=== PATIENT | male | born 1950 | race Caucasian/White ===

== ENCOUNTER 2018-04-11 13:12 | Observation (INO) | payer OTHER ==
--- OUTSIDE RECORDS SUMMARY | 2018-04-11 13:14 | XMS REPORT | Clinical Summary ---
:1950 Author Organization [facility] Address [address] [place] [address] Care Team Providers Name Role Phone James Antunez MD Primary Care Provider Allergies Not on File Medications Not on file Active Problems Not on file Encounters Date Type Specialty Care Team Description 02/07/2018 Hospital Encounter Radiology Priyanka Estes MD Pain 02/07/2018 Transcribe Orders Access Priyanka Estes MD Pain (Primary Dx) after 04/10/2017 Social History Tobacco Use Types Packs/Day Years Used Date Never Assessed Sex Assigned at Date Recorded Not on file Job Start Date Occupation Industry Not on file Not on file Not on file Travel History Travel Start Travel End No recent travel history available. Last Filed Vital Signs Not on file Plan of Treatment Health Maintenance Due Date Last Done Comments COLON CANCER SCREENING 08/10/1999 SHINGLES VACCINES (1 of 2) 08/10/1999 PNEUMOCOCCAL POLYSACCHARIDE VACCINE AGE 65 AND OVER 2014 PNEUMOCOCCAL-13 2014 INFLUENZA VACCINE 10/13/2017 Procedures Procedure Name Priority Date/Time Associated Diagnosis Comments XR HAND 3+ VW RIGHT Routine 02/07/2018 4:56 PM Pain Results for this TWIST MAKER procedure are in the results section. after 04/10/2017 Results XR Hand 3+ Vw Right (02/07/2018 4:56 PM TWIST MAKER) Narrative Performed At EXAMINATION:XR HAND 3VW RIGHT [facility] CLINICAL HISTORY:R52 Painunspecified, pain COMPARISON:None. IMPRESSION: 1.3 view evaluation of the right hand demonstrates no evidence for an acute fracture or dislocation. 2.There is mild joint space narrowing of the distal interphalangeal joint spaces and mild narrowing and sclerosis along the radial carpal junction. The intercarpal joint spaces are preserved. The ulnar styloid process is intact. No evidence for articular erosion. [id number] Procedure Note Hm Interface, Radiology Results Incoming - 02/07/2018 5:26 PM TWIST MAKER EXAMINATION: XR HAND 3 VW RIGHT CLINICAL HISTORY: R52 Pain unspecified, pain COMPARISON: None. IMPRESSION: 1. 3 view evaluation of the right hand demonstrates no evidence for an acute fracture or dislocation. 2. There is mild joint space narrowing of the distal interphalangeal joint spaces and mild narrowing and sclerosis along the radial carpal junction. The intercarpal joint spaces are preserved. The ulnar styloid process is intact. No evidence for articular erosion. [id number] Performing Organization Address City/State/Zipcode Phone Number [facility] [address] [place] [address] after 04/10/2017 Insurance Payer Benefit Plan / Group Subscriber ID Type Phone Address AETNA MEDICARE AETNA MEDICARE HMO/PPO [facility] xxxxxxxx HMO Advance Directives Patient has advance care planning documents on file. For more information, please contact:Shaheed Dugan[address] [place] [address]
[2018-04-11 14:40] LABS: Absolute Monocytes 0.7 K/uL (0.1-1.3); Absolute Neutrophil 3.5 K/uL (1.8-8.0); Basophils % 0.7 % (0-1.3); Eosinophils % 3.6 % (0-4.4); Hematocrit 40.8 % (39.6-49.0); Lymphocytes % 18.4 % (15.3-44.8); MPV 9.7 fL (7.6-11.3); Monocytes % 12.2 % (3.3-12.3); RBC Red Blood Cell Count 4.59 M/uL (4.33-5.43)
[2018-04-11 14:57] LABS: Protime INR 1.12
[2018-04-11 14:59] LABS: ALT/SGPT 18 U/L (12-78); AST/SGOT 19 U/L (15-37); Albumin 3.7 g/dL (3.4-5.0); Alkaline Phosphatase 123 U/L (45-117); BUN Blood Urea Nitrogen 11 mg/dL (7-18); Bicarbonate 29 mmol/L (21-32); Bilirubin Direct 0.1 mg/dL (0-0.2); Bilirubin Total 0.4 mg/dL (0.2-1.0); Glucose Level 102 mg/dL (74-106); Magnesium 2.3 mg/dL (1.8-2.4); NT PRO-BNP 124 pg/mL (<125); Potassium 4.2 mmol/L (3.5-5.1); Protein, Total 7.4 g/dL (6.4-8.2); Sodium Level 140 mmol/L (136-145); Troponin (Emerg Dept Use Only) < 0.02 ng/mL (0.0-0.045)
--- NOTE | 2018-04-11 15:27 | RAD REPORT ---
EXAM DESCRIPTION: RAD - Chest Single View - 04/11/2018 2:54 pm CLINICAL HISTORY: Fall, syncope, chest pain COMPARISON: April 2017 TECHNIQUE: AP portable chest image was obtained 1447 hours . FINDINGS: No pulmonary contusion, mass or focal infiltrate. Patient has significant baseline interst itial lung disease similar or less prominent than seen back in April 2017. Mediastinal silhouette matches the prior study. Heart and vasculature are normal. No measurable pleural effusion and no pneu mothorax. No acute bony abnormality seen. No acute aortic findings suspected. IMPRESSION: Prominent interstitial lung disease is present as a baseline. No pulmonary contusion, pn eumothorax or other acute traumatic chest injury seen.
--- NOTE | 2018-04-11 15:28 | RAD REPORT ---
EXAM DESCRIPTION: RAD - Wrist Left 3 View - 04/11/2018 2:54 pm CLINICAL HISTORY: Syncope, fall, left wrist pain COMPARISON: Left wrist February 2014 FINDINGS: Transverse fracture of the distal radius is present seen as buckling of the cortex at the metaphyseal level. There is faint curvilinear lucency in this region as well. No distraction or angul ation deformity. No carpal bone injury seen. Multiple metallic fragments are seen in the soft tissues from a remote injury to the hand. There is no dislocation or periosteal reaction noted. No foreign b jesus or other soft tissue abnormality. IMPRESSION: Nondisplaced, nonangulated fracture of the distal left radius.
--- NOTE | 2018-04-11 15:46 | RAD REPORT ---
EXAM DESCRIPTION: CT - CTHCSPWOC - 04/11/2018 3:21 pm CLINICAL HISTORY: Syncope, fall, head and neck injury COMPARISON: No comparison available TECHNIQUE: Axial 5 mm thick images of the head were obtained. Axial 2 mm thick images of the cervic al spine were obtained with sagittal and coronal reconstruction images generated and reviewed. All CT scans are performed using dose optimization technique as appropriate and may include automated exposure control or mA/KV adjustment according to patient size. FINDINGS: No epidural or subdural hematoma identified. Acute subarachnoid hemorrhage is not confirmed. Along a sulcus in the midline upper right anterior parietal lobe there is a curvilinear hyperdensity followin g the course of a gyrus. Attenuation values ranged from 95-117 Hounsfield units which is higher than seen with acute subarachnoid hemorrhage. Punctate hyperdensities in the medial anterior left cerebell um are seen also believed to be physiologic mineralization rather than subarachnoid hemorrhage. Patie nt has mild atrophy and chronic ischemic change. The right frontal hyperdensity is probably mineraliz ation from an old traumatic event. No mass effect, edema or shift of midline structures. No acute cortical infarction. No cortical edema or sulcal effacement. No extra-axial fluid collections. Mastoid air cells and paranasal sinuses are clear. No globe or orbit abnormality seen. Cervical bodies are normal in height. Slight anterior subluxation of C4 on C5 noted secondary to adva nced facet joint degenerative change. Significant C5-6 and C6-7 disc space narrowing and endplate spu rring noted. Multilevel facet hypertrophy present. Significant right foraminal stenosis at C3-4 and C 4-5. Mild bilateral foraminal stenosis at C5-6 and on the right at C6-7. No fracture or acute bony ab normality. Central canal detail is inherently limited. No paraspinal mass or hematoma. IMPRESSION: No acute intracranial hemorrhage, mass or edema. There is curvilinear hyperdensity along a sulcus in the right anteromedial parietal lobe that has an attenuation value of 95-117 Hounsfield units which is much higher than seen in subarachnoid hemorrhag e (40-70 Hounsfield units). This is likely mineralization along the cortex from prior traumatic or is chemic injury. Prominent cervical spine degenerative change as detailed. No acute findings seen.
--- NOTE | 2018-04-11 15:49 | ER ---
Nurse's Notes [facility] Name: Alex Garcia Age: 67 yrs Sex: Male : 1950 Arrival Date: 04/11/2018 Time: 13:15 Bed 16 Private MD: James Antunez Diagnosis: Syncope and collapse;Nondisplaced comminuted fracture of shaft of radius, right arm Presentation: 04/11 13:23 Presenting complaint: Patient states: syncopal episode at home, pt stated he felt fine sv before and then he remembers waking up on the floor. Left knee abrasion, lower lip laceration, nasal laceration where his glasses sit. Care prior to arrival: None. 13:23 Acuity: PANDA 2 sv 13:23 Method Of Arrival: Wheelchair sv 13:24 Transition of care: patient was not received from another setting of care. Onset of sv symptoms was April 11, 2018. 13:30 Risk Assessment: Do you want to hurt yourself or someone else? Patient reports no jl7 desire to harm self or others. Initial Sepsis Screen: Does the patient meet any 2 criteria? No. Patient's initial sepsis screen is negative. Does the patient have a suspected source of infection? No. Patient's initial sepsis screen is negative. Historical: - Allergies: 13:25 Methotrexate; sv - PMHx: 13:25 Anxiety; Depression; GERD; Hypothyroidism; left arm injury with injury to arter.; sv Rheumatoid Arthritis; - PSHx: 13:25 Carpal Tunnel Repair; left finger surg; sv - Immunization history:: Adult Immunizations not up to date. - Social history:: Patient/guardian denies using alcohol, street drugs, The patient lives with family, Smoking status: unknown. - Family history:: not pertinent. - Ebola Screening: : No symptoms or risks identified at this time. Screenin:30 Abuse screen: Denies threats or abuse. Denies injuries from another. Nutritional jl7 screening: No deficits noted. Tuberculosis screening: No symptoms or risk factors identified. Fall Risk Fall in past 12 months (25 points). IV access (20 points). Total Talavera Fall Scale indicates High Risk Score (45 or more points). Fall prevention measures have been instituted. Side Rails Up X 2 Placed Close to Nursing Station Frequent Obs/Assessments Occuring Family Present and informed to notify staff if the need to leave the bedside As available patient and family educated on Fall Prevention Program and Strategies. Assessment: 13:30 General: Appears in no apparent distress. uncomfortable, Behavior is calm, cooperative, jl7 appropriate for age. Pain: Denies pain. Complains of pain in left arm, pt states "It don't really hurt.". Neuro: Level of Consciousness is awake, alert, obeys commands, Oriented to person, place, time, situation. Cardiovascular: Patient's skin is warm and dry. Respiratory: Airway is patent Respiratory effort is even, unlabored, Respiratory pattern is regular, symmetrical. GI: No signs and/or symptoms were reported involving the gastrointestinal system. : No signs and/or symptoms were reported regarding the genitourinary system. EENT: No signs and/or symptoms were reported regarding the EENT system. Derm: Skin is pink, warm \\T\\ dry. Musculoskeletal: Range of motion: intact in all extremities. Injury Description: small abrasion noted to bridge pg nose and left cheek. Laceration noted to inside bottom lip. 14:30 Reassessment: Patient appears in no apparent distress at this time. Patient and/or jl7 family updated on plan of care and expected duration. Pain level reassessed. Patient is alert, oriented x 3, equal unlabored respirations, skin warm/dry/pink. 15:30 Reassessment: Patient appears in no apparent distress at this time. No changes from jl7 previously documented assessment. Patient and/or family updated on plan of care and expected duration. Pain level reassessed. Patient is alert, oriented x 3, equal unlabored respirations, skin warm/dry/pink. 16:30 Reassessment: Patient and/or family updated on plan of care and expected duration. Pain jl7 level reassessed. Patient is alert, oriented x 3, equal unlabored respirations, skin warm/dry/pink. Vital Signs: 13:25 BP 151 / 84; Pulse 69; Resp 20; Temp 98.8; Weight 99.79 kg; Height 6 ft. 1 in. (185.42 sv cm); Pain 03/24; 14:30 BP 143 / 77; Pulse 68; Resp 20; Temp 97.9(TE); Pulse Ox 97% ; mh5 15:30 BP 141 / 89; Pulse 67; Resp 16 S; Pulse Ox 98% on R/A; jl7 17:11 BP 137 / 91; Pulse 66; Resp 16 S; Pulse Ox 97% on R/A; jl7 13:25 Body Mass Index 29.03 (99.79 kg, 185.42 cm) sv ED Course: 13:15 Patient arrived in ED. mr 13:16 James Antunez MD is Private Physician. mr 13:24 Triage completed. sv 13:26 Arm band placed on. sv 13:32 Zurdo Fajardo, JOSE is Primary Nurse. jl7 13:39 Heidi Garcia MD is Attending Physician. ma2 14:19 Patient has correct armband on for positive identification. Bed in low position. Call [facility] light in reach. Side rails up X2. Adult w/ patient. Pulse ox on. NIBP on. 14:19 Initial lab(s) drawn, by pa, sent to lab. Inserted saline lock: 20 gauge in right [facility] antecubital area, using aseptic technique. Blood collected. 14:20 PT-INR Sent. 5 14:20 NT PRO-BNP Sent. 5 14:20 Magnesium Sent. 5 14:20 LFT's Sent. 5 14:20 CBC with Diff Sent. 5 14:20 Basic Metabolic Panel Sent. 5 14:27 Warm blanket given. patient monitor on. 5 14:49 Radiology exam delayed due to lab results not completed at this time. (BUN/Creatinine). 2 14:51 X-ray completed. Portable x-ray completed in exam room. Patient tolerated procedure 1 well. 14:52 XRAY Chest (1 view) In Process Unspecified. EDMS 14:52 Wrist Left (3 View) XRAY In Process Unspecified. EDMS 15:23 CT Abd/Pelvis - W/Contrast In Process Unspecified. EDMS 15:23 CT Head C Spine In Process Unspecified. EDMS 15:23 CT Facial Bones W/O Con In Process Unspecified. EDMS 15:47 James Antunez MD is Hospitalizing Provider. ma2 17:18 No provider procedures requiring assistance completed. Patient admitted, IV remains in 7 place. intact, No redness/swelling at site. Administered Medications: No medications were administered Outcome: 15:48 Decision to Hospitalize by Provider. ma2 18:01 Admitted to Tele accompanied by tech, via wheelchair, room 204, with chart, Report jl7 called to JOSE Carbajal 18:01 Condition: stable 18:01 Discharge instructions given to patient, family, Instructed on the need for admit, Demonstrated understanding of instructions. 18:02 Patient left the ED. jl7 Signatures: Dispatcher [employer] Nadine Law RN RN sv Rivera, Mary mr RamirezAmber 1 Cristal Sheppard Jahala, RN RN jl7 Sarah Kendall Heidi Garcia MD MD vt2
--- NOTE | 2018-04-11 15:49 | RAD REPORT ---
EXAM DESCRIPTION: CT - Abdomen Pelvis W Contrast - 04/11/2018 3:21 pm CLINICAL HISTORY: Abdominal pain COMPARISON: None. TECHNIQUE: Biphasic, helical CT imaging of the abdomen and pelvis was performed following 100 ml non -ionic IV contrast. No oral contrast administered. All CT scans are performed using dose optimization technique as appropriate and may include automated exposure control or mA/KV adjustment according to patient size. FINDINGS: Advanced COPD changes are present in each lung base. No acute finding. No pericardial thic kening or effusion. The liver, spleen, and pancreas show no suspicious findings. Gallbladder and biliary tree are also wi thout suspicious finding. Gallstones can be occult on CT imaging. Symmetric renal function is seen with no hydronephrosis or suspicious renal mass. No pyelonephritis o r acute parenchymal process. No bladder abnormalities. No adrenal abnormalities. No gastric dilatation or wall thickening. Small bowel loops are not abnormally dilated though there a re several prominent fluid-filled loops of distal jejunum. Moderate stool volume in nondilated colon. No acute colon finding. No free air, free fluid or inflammatory stranding. No mass or bulky lympha denopathy. Fat extends into the origin of the left inguinal canal. Disc and bony degenerative changes are present. No acute vascular finding. IMPRESSION: Proximal small bowel enteritis pattern with no obstruction, free air or surgically emerg ent finding.
--- NOTE | 2018-04-11 15:49 | EDPHYS ---
Physician Documentation [facility] Name: Alex Garcia Age: 67 yrs Sex: Male : 1950 Arrival Date: 04/11/2018 Time: 13:15 Bed 16 Private MD: James Antunez ED Physician Heidi Garcia HPI: 04/11 14:06 This 67 yrs old Male presents to ER via Wheelchair with complaints of Passed ma2 Out Prior To Arrival, Fall Injury. 14:06 The patient has experienced syncope. Onset: The symptoms/episode began/occurred ma2 suddenly, 1 hour(s) ago. Duration: This was a single episode. Associated injury: Head/face:. Associated signs and symptoms: Pertinent positives: weakness, Pertinent negatives: blurred vision, chest pain, confusion, diarrhea. Current symptoms: Currently, the patient is not experiencing any symptoms. The patient has not experienced similar symptoms in the past. Historical: - Allergies: 13:25 Methotrexate; sv - PMHx: 13:25 Anxiety; Depression; GERD; Hypothyroidism; left arm injury with injury to arter.; sv Rheumatoid Arthritis; - PSHx: 13:25 Carpal Tunnel Repair; left finger surg; sv - Immunization history:: Adult Immunizations not up to date. - Social history:: Patient/guardian denies using alcohol, street drugs, The patient lives with family, Smoking status: unknown. - Family history:: not pertinent. - Ebola Screening: : No symptoms or risks identified at this time. ROS: 14:06 Constitutional: Negative for fever, chills, and weight loss, Cardiovascular: Negative ma2 for chest pain, palpitations, and edema, Respiratory: Negative for shortness of breath, cough, wheezing, and pleuritic chest pain, Abdomen/GI: Negative for abdominal pain, nausea, diarrhea, and constipation, Allergy/Immunology: Negative for hives, rash, and allergies, Endocrine: Negative for neck swelling, polydipsia, polyuria, polyphagia, and marked weight changes. 14:06 MS/extremity: Positive for abrasion, pain, Negative for contusion, decreased range of motion. 14:06 All other systems are negative. Exam: 14:06 Abdomen/GI: Inspection: abdomen appears normal. ma2 14:06 Constitutional: This is a well developed, well nourished patient who is awake, alert, and in no acute distress. Chest/axilla: Normal chest wall appearance and motion. Nontender with no deformity. No lesions are appreciated. Cardiovascular: Regular rate and rhythm with a normal S1 and S2. No gallops, murmurs, or rubs. Normal PMI, no JVD. No pulse deficits. Respiratory: Lungs have equal breath sounds bilaterally, clear to auscultation and percussion. No rales, rhonchi or wheezes noted. No increased work of breathing, no retractions or nasal flaring. 14:06 Head/face: lower lip inner laceration that is not throgh and through, teeth intact, nasal abrasion, . 14:06 Musculoskeletal/extremity: ROM: intact in all extremities, limited passive range of motion, at left wrsit , Circulation is intact in all extremities. Sensation intact. Vital Signs: 13:25 BP 151 / 84; Pulse 69; Resp 20; Temp 98.8; Weight 99.79 kg; Height 6 ft. 1 in. (185.42 sv cm); Pain /10; 14:30 BP 143 / 77; Pulse 68; Resp 20; Temp 97.9(TE); Pulse Ox 97% ; mh5 15:30 BP 141 / 89; Pulse 67; Resp 16 S; Pulse Ox 98% on R/A; jl7 17:11 BP 137 / 91; Pulse 66; Resp 16 S; Pulse Ox 97% on R/A; jl7 13:25 Body Mass Index 29.03 (99.79 kg, 185.42 cm) sv MDM: 13:39 Patient medically screened. ma2 14:06 Differential Diagnosis: cardiac arrhythmia, drug effect, idiopathic syncope, sepsis. ma2 15:46 Data reviewed: vital signs, nurses notes, lab test result(s), radiologic studies. ma2 Response to treatment: the patient's symptoms have mildly improved after treatment. 15:47 ED course: discussed with dr. west . ak2 04/11 13:39 Order name: Basic Metabolic Panel; Complete Time: 15:13 2 04/11 13:39 Order name: CBC with Diff; Complete Time: 14:50 ak2 04/11 13:39 Order name: LFT's; Complete Time: 15:13 ak04/11 13:39 Order name: Magnesium; Complete Time: 15:13 ak2 04/11 13:39 Order name: NT PRO-BNP; Complete Time: 15:13 ma2 04/11 13:39 Order name: PT-INR; Complete Time: 15:13 ma2 04/11 13:39 Order name: Troponin (emerg Dept Use Only); Complete Time: 15:13 ma2 04/11 13:39 Order name: XRAY Chest (1 view); Complete Time: 15:43 ma2 04/11 13:58 Order name: CT Abd/Pelvis - W/Contrast; Complete Time: 17:17 ma2 04/11 15:49 Order name: Urine Dipstick--Ancillary (enter results); Complete Time: 17:17 bd 04/11 15:52 Order name: Basic Metabolic Panel EDMS 04/11 15:52 Order name: Basic Metabolic Panel EDMS 04/11 15:52 Order name: CBC with Automated Diff EDMS 04/11 15:52 Order name: CBC with Automated Diff EDMS 04/11 13:26 Order name: EKG; Complete Time: 13:27 sv 04/11 13:26 Order name: EKG - Nurse/Tech; Complete Time: 14:15 sv 04/11 13:39 Order name: Cardiac monitoring; Complete Time: 14:21 ma2 04/11 13:39 Order name: IV Saline Lock; Complete Time: 14:20 ma2 04/11 13:39 Order name: Labs collected and sent; Complete Time: 14:15 2 04/11 13:39 Order name: O2 Per Protocol; Complete Time: 14:15 ma2 04/11 13:39 Order name: O2 Sat Monitoring; Complete Time: 14:15 ak2 04/11 13:58 Order name: CT Head C Spine; Complete Time: 17:17 ma2 04/11 13:58 Order name: Wrist Left (3 View) XRAY; Complete Time: 15:43 ma2 04/11 15:14 Order name: CT Facial Bones W/O Con; Complete Time: 17:17 ma2 04/11 15:47 Order name: Sugar Tong Forearm Splint: right wrist; Complete Time: 16:15 ma2 04/11 15:52 Order name: Regular EDMS 04/11 15:52 Order name: EKG Electrocardiogram EDMS 04/11 15:52 Order name: EKG Electrocardiogram EDMS Administered Medications: No medications were administered Disposition: 04/11/18 15:48 Hospitalization ordered by James Antunez for Observation. Preliminary diagnosis are Syncope and collapse, Nondisplaced comminuted fracture of shaft of radius, right arm. - Bed requested for Telemetry/MedSurg (observation). - Status is Observation. jl7 - Condition is Stable. - Problem is new. - Symptoms are unchanged. UTI on Admission? No Signatures: Dispatcher [employer] EDMS Ivette Morales Stephanie, RN RN Zurdo Fajardo RN RN jl7 Heidi Garcia MD MD ma2 Corrections: (The following items were deleted from the chart) 17:02 15:48 Hospitalization Ordered by James Antunez MD for Observation. Preliminary bd diagnosis is Syncope and collapse; Nondisplaced comminuted fracture of shaft of radius, right arm. Bed requested for Telemetry/MedSurg (observation). Status is Observation. Condition is Stable. Problem is new. Symptoms are unchanged. UTI on Admission? No. ma2 18:02 17:02 04/11/2018 15:48 Hospitalization Ordered by James Antunez MD for Observation. jl7 Preliminary diagnosis is Syncope and collapse; Nondisplaced comminuted fracture of shaft of radius, right arm. Bed requested for Telemetry/MedSurg (observation). Status is Observation. Condition is Stable. Problem is new. Symptoms are unchanged. UTI on Admission? No. bd
[2018-04-11] MEDS ORDERED: ONDANSETRON 4 MG/2 ML VIAL IV PRN (15:50)
[2018-04-11] MEDS ORDERED: ACETAMINOPHEN 500 MG TAB PO PRN (15:50)
--- NOTE | 2018-04-11 16:00 | RAD REPORT ---
EXAM DESCRIPTION: CT - Facial Bones W/ Mpr - 04/11/2018 3:21 pm CLINICAL HISTORY: Syncope, fall, facial injury COMPARISON: None. TECHNIQUE: Axial 2 millimeter thick images of the facial bones were obtained with sagittal and coron al reconstruction imaging. All CT scans are performed using dose optimization technique as appropriate and may include automated exposure control or mA/KV adjustment according to patient size. FINDINGS: No mandible fracture. Condyles are normally positioned. There is mild degenerative change at each TM joint. Mastoid air cells are clear. No skullbase fracture identified. Cervical spine degen erative changes are separately detailed. Contusion or edema changes overlie the left-side frontal sof t tissues. Underlying sinus steel are intact. Trace mucosal thickening in the frontal and ethmoid sin uses. No air-fluid levels in the paranasal sinuses. No facial bone fracture confirmed. Patient has si gnificant left deviation of the nasal septum. No globe or orbital content acute finding. No foreign b jesus identified. IMPRESSION: Left frontal scalp contusion with underlying sinus steel intact. No acute facial bone finding seen.
[2018-04-11 16:31] LABS: Urine Blood NEGATIVE (NEG); Urine Glucose NEGATIVE (NEG); Urine Protein NEGATIVE (NEG); Urine Specific Gravity 1.015 (1.005-1.030)
[2018-04-11 18:24] VITALS: BMI 30.7
--- NOTE | 2018-04-11 20:49 | EKG ---
Test Date: 2018-04-11 Test Time: 13:27:58 Multi Disciplined Language Analyst: [place] MEASUREMENT RESULTS: Intervals: Rate: 65 DC: 196 QRSD: 132 QT: 430 QTc: 447 Roper: P: 38 DC: 196 QRS: -54 T: 1 INTERPRETIVE STATEMENTS: Normal sinus rhythm Left axis deviation Nonspecific intraventricular block Abnormal ECG Compared to ECG 05/08/2017 02:21:31 Left ventricular hypertrophy no longer present Electronically Signed On 04-11-18 20:47:49 FOREIGN LANGUAGES PROFESSOR by Mayank Funes
[2018-04-12 00:04] LABS: Urine Appearance CLEAR; Urine Bilirubin NEGATIVE (NEG); Urine Blood NEGATIVE (NEG); Urine Color YELLOW; Urine Glucose NEGATIVE (NEG); Urine Protein NEGATIVE (NEG); Urine Urobilinogen 0.2 mg/dL (0.2-1.0)
[2018-04-12 00:51] LABS: Urine Microscopic Reflex NO UMIC
[2018-04-12 06:19] LABS: Absolute Lymphocytes (CBC) 1.5 K/uL (0.7-4.9); Absolute Monocytes 1.3 K/uL (0.1-1.3); Absolute Neutrophil 5.3 K/uL (1.8-8.0); Basophils % 0.2 % (0-1.3); Eosinophils % 2.2 % (0-4.4); Hematocrit 37.7 % (39.6-49.0); Lymphocytes % 17.6 % (15.3-44.8); MPV 10.1 fL (7.6-11.3); Monocytes % 15.6 % (3.3-12.3)
[2018-04-12 06:41] LABS: Potassium 3.8 mmol/L (3.5-5.1)
[2018-04-12 08:40] LABS: Urine White Blood Cell Casts OK
[2018-04-12 08:41] LABS: Blood Morphology Comment NOT SEEN (NOT SEEN); Platelet Estimate ADEQ
[2018-04-12 08:54] VITALS: O2SAT 97
[2018-04-12] MEDS ORDERED: ASPIRIN EC 81 MG TAB PO SCH (09:00)
[2018-04-12] MEDS ORDERED: PNEUMOCOCCAL VACCINE 0.5 ML IMVAC ONE (09:00)
--- NOTE | 2018-04-12 13:49 | PN ---
Date of Progress Note: 04/11/2018 The patient is seen tonight and seems back to baseline as far as any neurological or functional probl ems are concerned, does complain obviously of discomfort in his arm which has a nondisplaced fracture of the radius and some mild soreness and nasal discomfort where the glasses hit. The patient states he remembers everything that happened. He does not think he was unconscious for any significant par t of the time and he feels basically back to baseline. We will continue to monitor overnight and if no other changes in his vital signs and mental status could probably be discharged in the a.m. HR/MODL Voice ID: [id number] Report ID: [id number]
--- NOTE | 2018-04-12 14:18 | RAD REPORT ---
EXAM DESCRIPTION: US - CP - 04/12/2018 1:49 pm CLINICAL HISTORY: Syncope COMPARISON: None. TECHNIQUE: Real-time sonographic evaluation of both carotid systems was performed. Holland scale and Do ppler interrogation were performed with waveform tracing bilaterally. FINDINGS: Normal high resistance waveforms are noted in both external carotid arteries. The common c arotid arteries and internal carotid arteries show normal low resistance waveforms. Scattered plaquing changes are present in the bilateral common carotid and internal carotid arteries. On visual inspection there is no significant narrowing of the lumen. Right ICA is tortuous. Peak sys tolic and end diastolic velocity values and the ICA/CCA ratios are in the non-hemodynamically signifi cant range. Antegrade flow seen in both vertebral arteries. Velocity values and ratios were recorded and are retained in the patient's imaging records. IMPRESSION: Mild plaquing changes with no significant luminal narrowing. No evidence of a hemodynamically significant stenosis.
[2018-04-12 17:26] VITALS: BP 158/79; TEMP 98.8
[2018-04-12] MEDS ORDERED: RANITIDINE 150 MG TABLET PO SCH (21:00)
[2018-04-12] MEDS ORDERED: SULFASALAZINE 500 MG E.C. TAB PO SCH (21:00)
[2018-04-13] MEDS ORDERED: LEVOTHYROXINE SOD 0.112 MG TAB PO SCH (06:30)
[2018-04-13] MEDS ORDERED: LEVOTHYROXINE SOD 0.025 MG TAB PO SCH (06:30)
[2018-04-13] MEDS ORDERED: FLUOXETINE 20 MG CAP PO SCH (09:00)
[2018-04-13] MEDS ORDERED: HOME MED 1 EA UNK (Levothyroxine Sodium [Levothyroxine Sodium] 137 MCG) PO SCH (09:00)
[2018-04-13] MEDS ORDERED: MULTIVIT W/ MINERAL TAB PO SCH (09:00)
== END 2018-04-12 21:40 | disposition home or self-care (01) ==
LOC: ER 13:12 → ERHOLD 15:51 → 2ND 17:56
PROVIDERS: ADMIT Family Medicine; ATTEND Family Medicine
DX: R55 Syncope and collapse (principal); S52.351A Displaced comminuted fracture of shaft of radius, right arm, initial encounter for closed fracture; W18.30XA Fall on same level, unspecified, initial encounter; Y92.009 Unspecified place in unspecified non-institutional (private) residence as the place of occurrence of the external cause; F41.8 Other specified anxiety disorders; K21.9 Gastro-esophageal reflux disease without esophagitis; E03.9 Hypothyroidism, unspecified
CPT/HCPCS: 36415 ×2; 70450; 70486; 71045; 72125; 73110; 74177; 76377; 80048 ×2; 80076; 81003 ×2; 83735; 83880; 84484; 85025 ×2; 85610; 93005; 93880; 99285; G0378 ×2; Q9967

== ENCOUNTER 2020-01-30 15:32 | Observation (INO) | payer OTHER ==
--- OUTSIDE RECORDS SUMMARY | 2020-01-30 15:35 | XMS REPORT | Clinical Summary ---
:1950 Author Organization [facility] Address [address] [place] [address] Care Team Providers Name Role Phone MD Tulio Primary Care Provider Allergies Not on File Medications Not on file Active Problems Not on file Social History Tobacco Use Types Packs/Day Years Used Date Never Assessed Sex Assigned at Date Recorded Not on file Last Filed Vital Signs Not on file Plan of Treatment Health Maintenance Due Date Last Done Comments COLONOSCOPY SCREENING 08/10/1999 SHINGLES VACCINES (#1) 08/10/1999 65+ PNEUMOCOCCAL VACCINE (1 of 1 - PPSV23) 2014 INFLUENZA VACCINE 10/14/2019 Results Not on fileafter 01/29/2019 Advance Directives For more information, please contact: [phone] Type Date Recorded Patient Clinical Support Tech Explanati on Advance Directives, Living 02/07/2018 4:34 PM Will and Medical Power of Cellular Equipment Installer
[2020-01-30 16:50] LABS: Absolute Lymphocytes (CBC) 1.3 K/uL (0.7-4.9); Basophils % 0.5 % (0-1.3); Hematocrit 42.4 % (39.6-49.0); MPV 10.3 fL (7.6-11.3); Protime INR 1.08; RBC Red Blood Cell Count 4.93 M/uL (4.33-5.43)
--- NOTE | 2020-01-30 16:57 | RAD REPORT ---
EXAM DESCRIPTION: RAD - Chest Single View - 01/30/2020 4:29 pm CLINICAL HISTORY: CHEST PAIN Chest pain. COMPARISON: Chest Single View dated 04/11/2018; Chest Single View dated 05/08/2017; Chest Pa And Lat ( 2 Views) dated 01/12/2017 FINDINGS: Portable technique limits examination quality. The lungs are grossly clear. The heart is normal in size. Mildly tortuous thoracic aorta. No displace d fractures. IMPRESSION: No acute intrathoracic process suspected.
[2020-01-30 17:06] LABS: ALT/SGPT 18 U/L (12-78); AST/SGOT 17 U/L (15-37); Albumin 3.6 g/dL (3.4-5.0); Alkaline Phosphatase 130 U/L (45-117); BUN Blood Urea Nitrogen 15 mg/dL (7-18); Bicarbonate 30 mmol/L (21-32); Bilirubin Direct 0.2 mg/dL (0-0.2); Bilirubin Total 0.7 mg/dL (0.2-1.0); Glucose Level 87 mg/dL (74-106); Magnesium 2.6 mg/dL (1.8-2.4); NT PRO-BNP 33 pg/mL (<125); Potassium 3.8 mmol/L (3.5-5.1); Protein, Total 7.7 g/dL (6.4-8.2); Sodium Level 137 mmol/L (136-145); Troponin (Emerg Dept Use Only) < 0.02 ng/mL (0.0-0.045)
--- NOTE | 2020-01-30 17:13 | EDPHYS ---
Physician Documentation [facility] Name: Alex Garcia Age: 69 yrs Sex: Male : 1950 Arrival Date: 01/30/2020 Time: 15:36 Bed 16 Private MD: James Anutnez ED Physician Jose Duron HPI: 01/29 16:00 This 69 yrs old Male presents to ER via Ambulatory with complaints of jmm Abnormal EKG. 16:00 The patient presents with a history of heart racing. Onset: The symptoms/episode jmm began/occurred yesterday. Modifying factors: The symptoms are aggravated by light activity. Associated signs and symptoms: Pertinent positives: SOB, Pertinent negatives: chest pain, fever. This is a 69 year old male with a history of anxiety, hypothyroidism, COPD that presents to the ED with complaints of fatigue beginning yesterday worsened with exertion. Patient denies chest pain. Patient states having an episode of palpitations yesterday while walking his dog. Patient began taking lisinopril and hctz over the past week. . Historical: - Allergies: 15:58 Methotrexate; ss - PMHx: 15:58 Anxiety; Hypothyroidism; GERD; Depression; left arm injury with injury to arter.; ss Rheumatoid Arthritis; COPD; - PSHx: 15:58 Carpal Tunnel Repair; left finger surg; ss - Immunization history:: Flu vaccine is up to date. - Social history:: Smoking status: Patient/guardian denies using tobacco, the patient reports quitting approximately 3 years ago. ROS: 16:00 Constitutional: Positive for fatigue. jmm 16:00 Cardiovascular: Positive for palpitations. 16:00 Respiratory: Positive for shortness of breath. 16:00 Neuro: Positive for weakness. 16:00 All other systems are negative. Exam: 16:00 Constitutional: This is a well developed, well nourished patient who is awake, alert, jmm and in no acute distress. Head/Face: atraumatic. Eyes: EOMI, no conjunctival erythema appreciated ENT: Moist Mucus Membranes Neck: Trachea midline, Supple Chest/axilla: Normal chest wall appearance and motion. Cardiovascular: Regular rate and rhythm. No edema appreciated Respiratory: Normal respirations, no respiratory distress appreciated Abdomen/GI: Non distended, soft Back: Normal ROM Skin: General appearance color normal MS/ Extremity: Moves all extremities, no obvious deformities appreciated, no edema noted to the lower extremities Neuro: Awake and alert, normal gait Psych: Behavior is normal, Mood is normal, Patient is cooperative and pleasant 16:00 ECG was reviewed by the Attending Physician. Vital Signs: 15:56 BP 169 / 93; Pulse 69; Resp 17; Temp 98.5; Pulse Ox 100% ; Weight 97.52 kg; Height 6 ss ft. 1 in. (185.42 cm); Pain 0/10; 17:45 BP 160 / 91; Pulse 91; Resp 18; Pulse Ox 97% on R/A; em 18:30 BP 128 / 89; Pulse 71; Resp 16; Pulse Ox 97% on R/A; em 19:45 BP 116 / 70; Pulse 65; Resp 18; Pulse Ox 98% on R/A; jb4 21:00 BP 138 / 87; Pulse 67; Resp 16; Pulse Ox 98% on R/A; jb4 21:30 BP 141 / 92; Pulse 69; Resp 16; Pulse Ox 99% on R/A; jb4 15:56 Body Mass Index 28.37 (97.52 kg, 185.42 cm) ss MDM: 16:12 Patient medically screened. [facility] 17:10 Data reviewed: vital signs, nurses notes. Counseling: I had a detailed discussion with [facility] the patient and/or guardian regarding: the historical points, exam findings, and any diagnostic results supporting the discharge/admit diagnosis, radiology results, the need for further work-up and treatment in the hospital. ED course: I discussed the patient with Dr. Antunez whom recommended observation and stress test in the morning. . 01/29 16:00 Order name: Basic Metabolic Panel; Complete Time: 17:07 [facility] 01/29 16:00 Order name: CBC with Diff; Complete Time: 16:55 [facility] 01/29 16:00 Order name: LFT's; Complete Time: 17:07 [facility] 01/29 16:00 Order name: Magnesium; Complete Time: 17:07 [facility] 01/29 16:00 Order name: NT PRO-BNP; Complete Time: 17:07 [facility] 01/29 16:00 Order name: PT-INR; Complete Time: 17:00 [facility] 01/29 16:00 Order name: Troponin (emerg Dept Use Only); Complete Time: 17:07 [facility] 01/29 17:17 Order name: Basic Metabolic Panel [facility] 01/29 17:17 Order name: Basic Metabolic Panel [facility] 01/29 17:17 Order name: CBC with Automated Diff [facility] 01/29 17:18 Order name: CBC with Automated Diff [facility] 01/29 17:18 Order name: Troponin I [facility] 01/29 17:18 Order name: Troponin I [facility] 01/29 17:18 Order name: Troponin I; Complete Time: 21:52 [facility] 01/29 16:00 Order name: XRAY Chest (1 view); Complete Time: 17:00 [facility] 01/29 16:00 Order name: EKG; Complete Time: 16:01 [facility] 01/29 16:00 Order name: Cardiac monitoring; Complete Time: 16:03 [facility] 01/29 16:00 Order name: EKG - Nurse/Tech; Complete Time: 16:42 [facility] 01/29 16:00 Order name: IV Saline Lock; Complete Time: 16:42 [facility] 01/29 16:00 Order name: Labs collected and sent; Complete Time: 16:42 [facility] 01/29 17:17 Order name: CONS Physician Consult [facility] 01/29 17:17 Order name: CONS Physician Consult [facility] 01/29 17:17 Order name: Regular [facility] 01/29 17:17 Order name: EKG Electrocardiogram [facility] 01/29 17:17 Order name: EKG Electrocardiogram [facility] 01/29 17:17 Order name: EKG Electrocardiogram [facility] 01/29 17:17 Order name: EKG Electrocardiogram [facility] 01/29 18:02 Order name: COVID-19 bd 01/29 19:50 Order name: CORONAVIRUS [facility] 01/29 20:48 Order name: SARS-COV-2 RT PCR; Complete Time: 20:52 [facility] 01/29 16:00 Order name: O2 Per Protocol; Complete Time: 16:03 [facility] 01/29 16:00 Order name: O2 Sat Monitoring; Complete Time: 16:03 [facility] EC:00 Rate is 67 beats/min. Rhythm is regular. QRS [place] is Normal. [place] interval is normal. QRS jmm interval is normal. QT interval is normal. No Q waves. T waves are Normal. No ST changes noted. Reviewed by me. Administered Medications: No medications were administered Disposition: 01/30 08:29 Co-signature as Attending Physician, Jose Duron MD I agree with the assessment and kdr plan of care. Disposition: 01/30/20 17:12 Hospitalization ordered by James Antunez for Observation. Preliminary diagnosis are Abnormal electrocardiogram [ECG] [EKG], Malaise and fatigue. - Bed requested for Telemetry/MedSurg (observation). - Status is Observation. jb4 - Condition is Stable. - Problem is new. - Symptoms are unchanged. Signatures: Dispatcher [employer] EDMS Jose Duron MD MD [facility] Stanley Valentin PA PA [facility] Erinn Boyd, RN RN ss Katia Strong RN RN tl1 Williams Lomeli RN RN jb4 Corrections: (The following items were deleted from the chart) 01/29 21:00 17:12 Hospitalization Ordered by James Antunez MD for Observation. Preliminary tl1 diagnosis is Abnormal electrocardiogram [ECG] [EKG]; Malaise and fatigue. Bed requested for Telemetry/MedSurg (observation). Status is Observation. Condition is Stable. Problem is new. Symptoms are unchanged. [facility] 21:54 17:07 Urine Dipstick-Ancillary ordered. [facility] jb4 21:58 21:00 01/30/2020 17:12 Hospitalization Ordered by James Antunez MD for Observation. jb4 Preliminary diagnosis is Abnormal electrocardiogram [ECG] [EKG]; Malaise and fatigue. Bed requested for Telemetry/MedSurg (observation). Status is Observation. Condition is Stable. Problem is new. Symptoms are unchanged. tl1
--- NOTE | 2020-01-30 17:13 | ER ---
Nurse's Notes [facility] Name: Alex Garcia Age: 69 yrs Sex: Male : 1950 Arrival Date: 01/30/2020 Time: 15:36 Bed 16 Private MD: James Antunez Diagnosis: Abnormal electrocardiogram [ECG] [EKG];Malaise and fatigue Presentation: 01/29 15:56 Chief complaint: Patient states: [place] palpitations yesterday after a short walk with ss fatigue and slight SOB. Saw Dr. Antunez today, sent in for eval of abnormal EKG, R BBB on EKG. Coronavirus screen: Client denies travel out of the [place] in the last 14 days. At this time, the client does not indicate any symptoms associated with coronavirus-19. Ebola Screen: Patient denies travel to an Ebola-affected area in the 21 days before illness onset. Initial Sepsis Screen: Does the patient meet any 2 criteria? No. Patient's initial sepsis screen is negative. Does the patient have a suspected source of infection? No. Patient's initial sepsis screen is negative. Risk Assessment: Do you want to hurt yourself or someone else? Patient reports no desire to harm self or others. Onset of symptoms was January 29, 2020. 15:56 Method Of Arrival: Ambulatory ss 15:56 Acuity: PANDA 3 ss Historical: - Allergies: 15:58 Methotrexate; ss - PMHx: 15:58 Anxiety; Hypothyroidism; GERD; Depression; left arm injury with injury to arter.; ss Rheumatoid Arthritis; COPD; - PSHx: 15:58 Carpal Tunnel Repair; left finger surg; ss - Immunization history:: Flu vaccine is up to date. - Social history:: Smoking status: Patient/guardian denies using tobacco, the patient reports quitting approximately 3 years ago. Screenin:35 Abuse screen: Denies threats or abuse. Nutritional screening: No deficits noted. em Tuberculosis screening: No symptoms or risk factors identified. Fall Risk None identified. Assessment: 16:30 General: Appears in no apparent distress. comfortable, Behavior is calm, cooperative, em appropriate for age, Denies fever. Pain: Denies pain. Neuro: Level of Consciousness is awake, alert, obeys commands, Oriented to person, place, time, situation. Cardiovascular: Denies chest pain, nausea, palpitations, Capillary refill < 3 seconds Patient's skin is warm and dry. Respiratory: Reports shortness of breath on exertion Airway is patent Respiratory effort is even, unlabored, Respiratory pattern is regular, symmetrical. GI: Patient currently denies nausea, vomiting. Derm: Skin is intact, is healthy with good turgor, Skin is pink, warm \T\ dry. Musculoskeletal: Capillary refill < 3 seconds, Range of motion: intact in all extremities. 17:45 Reassessment: Patient appears in no apparent distress at this time. Patient and/or em family updated on plan of care and expected duration. Pain level reassessed. Patient is alert, oriented x 3, equal unlabored respirations, skin warm/dry/pink. 18:30 Reassessment: Patient appears in no apparent distress at this time. Patient and/or em family updated on plan of care and expected duration. Pain level reassessed. Patient is alert, oriented x 3, equal unlabored respirations, skin warm/dry/pink. 19:05 Reassessment: Patient appears in no apparent distress at this time. Patient and/or jb4 family updated on plan of care and expected duration. Pain level reassessed. Patient is alert, oriented x 3, equal unlabored respirations, skin warm/dry/pink. 19:45 Reassessment: Called lab to check for covid results. Lab reports they are just now jb4 running the test. 20:00 Reassessment: Patient appears in no apparent distress at this time. Patient and/or jb4 family updated on plan of care and expected duration. Pain level reassessed. Patient is alert, oriented x 3, equal unlabored respirations, skin warm/dry/pink. 21:00 Reassessment: Patient appears in no apparent distress at this time. Patient and/or jb4 family updated on plan of care and expected duration. Pain level reassessed. Patient is alert, oriented x 3, equal unlabored respirations, skin warm/dry/pink. 21:54 Reassessment: Patient appears in no apparent distress at this time. Patient and/or jb4 family updated on plan of care and expected duration. Pain level reassessed. Patient is alert, oriented x 3, equal unlabored respirations, skin warm/dry/pink. Vital Signs: 15:56 BP 169 / 93; Pulse 69; Resp 17; Temp 98.5; Pulse Ox 100% ; Weight 97.52 kg; Height 6 ss ft. 1 in. (185.42 cm); Pain 0/10; 17:45 BP 160 / 91; Pulse 91; Resp 18; Pulse Ox 97% on R/A; em 18:30 BP 128 / 89; Pulse 71; Resp 16; Pulse Ox 97% on R/A; em 19:45 BP 116 / 70; Pulse 65; Resp 18; Pulse Ox 98% on R/A; jb4 21:00 BP 138 / 87; Pulse 67; Resp 16; Pulse Ox 98% on R/A; jb4 21:30 BP 141 / 92; Pulse 69; Resp 16; Pulse Ox 99% on R/A; jb4 15:56 Body Mass Index 28.37 (97.52 kg, 185.42 cm) ED Course: 15:36 Patient arrived in ED. ag5 15:36 James Antunez MD is Private Physician. [facility] 15:57 Triage completed. 15:58 Arm band placed on Patient placed in an exam room, on a stretcher. 16:00 Stanley Valentin PA is PHCP. [facility] 16:00 Jose Duron MD is Attending Physician. [facility] 16:00 Jose Estrada, JOSE is Primary Nurse. em 16:29 XRAY Chest (1 view) In Process Unspecified. EDMS 16:35 Patient has correct armband on for positive identification. Placed in gown. Bed in low em position. Call light in reach. Side rails up X2. pasting machine offbearer on. Pulse ox on. NIBP on. 16:35 Initial lab(s) drawn, by or, sent to lab. Inserted saline lock: 22 gauge in left em antecubital area, using aseptic technique. Blood collected. 17:11 James Antunez MD is Hospitalizing Provider. [facility] 21:57 No provider procedures requiring assistance completed. Patient admitted, IV remains in jb4 place. Administered Medications: No medications were administered Outcome: 17:12 Decision to Hospitalize by Provider. [facility] 21:57 Admitted to Med/surg accompanied by tech, via wheelchair, room 220, with chart. [facility] 21:57 Condition: stable 21:57 Discharge instructions given to patient, Instructed on the need for admit, Demonstrated understanding of instructions. 21:58 Patient left the ED. jb4 Signatures: Dispatcher [employer] Stanley Landaverde PA PA jmm Munoz, Edgar, RN RN em Smirch, Shelby, RN RN ss Bryson, James, RN RN jb4 Shashi Wiggins [facility]
[2020-01-30] MEDS ORDERED: ONDANSETRON 4 MG/2 ML VIAL IV PRN (17:14)
[2020-01-30] MEDS ORDERED: ACETAMINOPHEN 500 MG TAB PO PRN (17:14)
[2020-01-30 22:00] VITALS: BMI 27.2
[2020-01-31 04:46] LABS: Basophils % 0.8 % (0-1.3); Hematocrit 40.5 % (39.6-49.0); Lymphocytes % 28.8 % (15.3-44.8); MPV 10.2 fL (7.6-11.3); RBC Red Blood Cell Count 4.76 M/uL (4.33-5.43)
[2020-01-31 04:58] LABS: Potassium 4.1 mmol/L (3.5-5.1)
[2020-01-31] MEDS ORDERED: ASPIRIN EC 81 MG TAB PO SCH (09:00)
[2020-01-31 09:23] VITALS: O2SAT 94
[2020-01-31] MEDS ORDERED: REGADENOSON 0.4 MG/5 ML SYR IV ONE (14:16)
--- NOTE | 2020-01-31 15:35 | RAD REPORT ---
EXAM DESCRIPTION: NM - Rest Stress Cardiac Imaging - 01/31/2020 2:58 pm CLINICAL HISTORY: Chest pain. COMPARISON: None. TECHNIQUE: The patient was administered approximately 10mCi of Tc 99m Sestamibi prior to resting SPE CT imaging of the heart. The patient was then administered approximately 30 mCi of Tc 99m Sestamibi f ollowing exercise or pharmacologic stress. Multiplanar SPECT images were reviewed. FINDINGS: There is uniformity of radiotracer uptake involving the entire left ventricular myocardiu m on rest and stress images. The left ventricular ejection fraction equals 42% IMPRESSION: Negative for a myocardial perfusion defect
[2020-01-31 17:16] VITALS: BP 148/85; TEMP 98.5
--- NOTE | 2020-02-01 06:09 | EKG ---
Test Date: 2020-01-30 Test Time: 16:11:06 Tax Examiner: NESSA MEASUREMENT RESULTS: Intervals: Rate: 67 VA: 198 QRSD: 134 QT: 414 QTc: 437 [place]: P: 30 VA: 198 QRS: -59 T: 24 INTERPRETIVE STATEMENTS: Normal sinus rhythm Right bundle branch block Left anterior fascicular block Bifascicular block Minimal voltage criteria for LVH, may be normal variant Septal infarct, age undetermined Abnormal ECG Compared to ECG 04/11/2018 13:27:58 Right bundle-branch block now present Left anterior fascicular block now present Bifascicular block now present Left ventricular hypertrophy now present Myocardial infarct finding now present Left-axis deviation no longer present Electronically Signed On 02-01-20 06:03:35 COMMERCIAL [employer]ES ACCOUNT ASSISTANT by Mayank Funes
--- NOTE | 2020-02-01 07:08 | CON ---
Date of Consultation: 01/31/2020 Reason For Consultation: Abnormal EKG and fatigue. History Of Present Illness: Mr. Garcia is a 69-year-old male who has a history of anxiety, gastroeso phageal reflux disease, depression, hypothyroidism, rheumatoid arthritis, and COPD. No previous card iac history. He came in to Dr. Antunez's office with significant generalized weakness. No specific symptoms. Found to have an abnormal EKG with left anterior hemiblock and a right bundle-branch bifas cicular block. He was admitted for further workup. Allergies: NONE. Review of Systems: Negative. Social History: Negative. Family History: Negative. Medications: Listed by Dr. Antunez. Physical Examination: GENERAL: He is very pleasant, in no acute distress. VITALS SIGNS: Stable, afebrile, sinus rhythm HEENT: Negative. NECK: Supple. No bruit. CHEST: Clear. CARDIAC: Revealed a regular rhythm and rate. No murmurs, gallops, or rubs. ABDOMEN: Benign. EXTREMITIES: Revealed no clubbing, cyanosis, or edema. Diagnostic Data: Within normal limits except for the EKG. Impression And Plan: Abnormal EKG in a patient who is 69 years old with significant fatigue. No spe cific cardiac risk factors except for his age and gender. Stress test and echocardiogram have alread y been ordered by Dr. Antunez. We will see what those show before making final decisions. I am cert ain that the EKG abnormality was found out to be more chronic than acute. I do not think this is cau sing any of these symptoms per se. We will look for reasons for his abnormal EKG and his symptoms wi th the echocardiogram and stress test. I will continue to follow him and discuss the case further wi th Dr. Antunez. NB/MODL Voice ID: [id number] Report ID: [id number]
--- NOTE | 2020-02-01 07:10 | TREADPHA ---
DX: FATIGUE, CHEST PAIN Date of Study: 01/31/2020 Ht: 6' 1 " Wt: 206 lb 11.2 oz Consulting Physician: EVETTE MEDICATIONS: PROTONIX, LISINOPRIL, LEVOTHYROXINE HISTORY: CHRONIC OBSTRUCTIVE PULMONARY DISEASE, GERD, DEPRESSION, HYPERTENSION, FORMER SMOKER. PHYSICIAL EXAMINATION: RESTING B.P.: 149/104 RESTING H.R.: RESTING EKG: SINUS RHYTHM, LEFT VENTRICULAR MAEGAN-BLOCK, RIGHT BUNDLE BRANCH BLOCK PROTOCOL: PHARMACOLOGIC EXERCISE TIME: 3:30 B.P. AT [place] STRESS: 160/104 IMPRESSION: LEXISCAN PENDING. NO ELECTROCARDIOGRAM CHANGES. OCCASIONAL PREMATURE VENTRICULAR COMPLEXES. NO CHEST PAIN. HYPERTENSION.
--- NOTE | 2020-02-01 07:13 | ECHO ---
HEIGHT: 6 ft 1 in WEIGHT: 206 lb 11.2 oz DATE OF STUDY: 01/31/[address]: Mayank Funes MD 2-DIMENSIONAL: YES M.MODE: YES DOPPLER: YES COLOR FLOW: YES TDS: PORTABLE: DEFINITY: BUBBLE STUDY: DIAGNOSIS: POS ELECTROCARDIOGRAM CARDIAC HISTORY: CATHERIZATION: NO SURGERY: NO PROSTHETIC VALVE: NO PACEMAKER: NO MEASUREMENTS (cm) DIASTOLIC (NORMALS) SYSTOLIC (NORMALS) IVSd 1.2 (0.6-1.2) LA Diam 2.3 (1.9-4.0) LVEF 63% LVIDd 4.5 (3.5-5.7) LVIDs 3.0 (2.0-3.5) %FS 34% LVPWd 1.2 (0.6-1.2) Ao Diam 3.1 (2.0-3.7) 2 DIMENSIONAL ASSESSMENT: RIGHT ATRIUM: NORMAL LEFT ATRIUM: NORMAL RIGHT VENTRICLE: NORMAL LEFT VENTRICLE: NORMAL TRICUSPID VALVE: NORMAL MITRAL VALVE: MITRAL ANNULAR CALCIFICATION PULMONIC VALVE: NORMAL AORTIC VALVE: SCLEROSIS PERICARDIAL EFFUSION: NONE AORTIC ROOT: NORMAL LEFT VENTRICULAR WALL MOTION: NORMAL DOPPLER/COLOR FLOW: NORMAL COMMENTS: NORMAL EJECTION FRACTION AND LEFT VENTRICULAR SIZE. NO WALL MOTION ABNORMALITY. MITRAL ANNULAR CALCIFICATION. AORTIC SCLEROSIS - NO STENOSIS. TECHNOLOGIST: KARINA LAO
--- NOTE | 2020-02-01 10:19 | PN ---
Date of Progress Note: 01/31/2020 The patient states he feels okay this afternoon better; however, I think most of his symptoms were oc curred when he was active. Chemical stress test was negative for ischemia; however, there was some q uestion about his ejection fraction. His hypertension issue is possibly secondary to his medication he takes for RA. 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 He was kept o ff it for 6 weeks and apparently made no difference in his blood pressure, so he was restarted at a l ower dose. However, his blood pressure was not quite as labile as it has on this . We saida l discharge him. Monitor his blood pressure. Remain off his RA medicine and his diuretic as he does date his symptoms back to the onset of taking this. Keep him on monitor his blood pressu re and see him next week, Cardiology in 2 weeks. HR/MODL Voice ID: [id number] Report ID: [id number]
--- NOTE | 2020-02-01 11:50 | HP ---
Date of Admission: 01/30/2020 Chief Complaint: Generalized weakness, exertional dyspnea. Abnormal EKG. History Of Present Illness: The patient presented to the office with the above outlined symptoms. Darío de dios has had some difficulty with hypertension in the past and lately has been increased significantly. In the past has been controlled without medication and diuretic was added to his GILMA inhibitor, and he states after that happened, he became aware that he was dyspneic with exertion. He has generalize d weakness and he knows the tachycardia as well. His blood pressure has been somewhat elevated, pres sures with diastolic. Past Medical History: Patient has a history of RA and is on medications for this, some of which have been implicated in blood pressure issues and in fact this whole situation has been discussed with [facility] about a year ago which she took off his Arava and there was no change in his blood p ressure, she did not feel was an issue. However, at this time, it has to be considered in differenti al. Family History: Noncontributory. Social History: Nonsmoker, nondrinker. Physical Examination: General: Patient is elderly male. Vital Signs: Stable vital signs. Head and Neck: Normocephalic. Pupils equal and reactive to light and accommodation. Fundi negative . Trachea midline. Thyroid not palpable. ENT: Negative. Chest: Clear to P and A. Cardiovascular: PMI midclavicular line. Heart: Sounds normal. Peripheral pulses present and equal bilaterally. Abdomen: No organomegaly. Bowel sounds present. Extremities: Good tone and movement bilaterally. Reflexes physiologic. Rectal: Deferred. Impression: 1.Possible coronary artery disease. 2.Hypertension, poor control. 3.Rheumatoid arthritis by history. Plan: Patient will be admitted. Placed on telemetry. EKG in the office showed bifascicular block s till present on admission. He states he feels okay as long as he is not exerting himself and therefo re any stress test will be done if his cardiac enzymes are negative. He had 1 about 2 years ago, whi ch was reportedly within normal limits, and we will hold some of the medication to more delineate. I f in fact the enzymes are negative, stress test will be performed. HR/MODL Voice ID: [id number]
== END 2020-01-31 19:35 | disposition home or self-care (01) ==
LOC: ER 15:32 → ERHOLD 17:15 → 2ND 21:22
PROVIDERS: ADMIT Family Medicine; ATTEND Family Medicine
DX: R06.09 Other forms of dyspnea (principal); R53.1 Weakness; R94.31 Abnormal electrocardiogram [ECG] [EKG]; Z20.828 Contact with and (suspected) exposure to other viral communicable diseases; I10 Essential (primary) hypertension; F41.9 Anxiety disorder, unspecified; K21.9 Gastro-esophageal reflux disease without esophagitis; F32.9 Major depressive disorder, single episode, unspecified; E03.9 Hypothyroidism, unspecified; M06.9 Rheumatoid arthritis, unspecified; J44.9 Chronic obstructive pulmonary disease, unspecified; I45.2 Bifascicular block; Z87.891 Personal history of nicotine dependence
CPT/HCPCS: 93005; 93017; 93306; 85025 ×2; 80048 ×2; 36415; 83735; 85610; 80076; 84484 ×3; 83880; 71045; 78452; 99285; U0003; J2785; A9500

== ENCOUNTER 2022-03-20 16:58 | Emergency (ER) | payer OTHER ==
--- OUTSIDE RECORDS SUMMARY | 2022-03-20 17:06 | XMS REPORT | Continuity of Care Document ---
:1950 Author Organization [facility] t Address [address] [place] [address] Care Team Providers Name Role Phone Tulio CASH, James Primary Care Physician Problems This patient has no known problems. Allergies, Adverse Reactions, Alerts This patient has no known allergies or adverse reactions. Social History Social Habit Start Date Stop Date Quantity Comments Source Sex Assigned At [birth year] [facility] 00:00:00 00:00:00 Smoking Status Start Date Stop Date Source Tobacco smoking consumption unknown [facility] Medications This patient has no known medications. Procedures This patient has no known procedures. Plan of Care Planned Activity Planned Date Details Comments Source Future Scheduled 2022-02-26 INFLUENZA VACCINE [facility] Test 12:25:56 [code = INFLUENZA VACCINE] Future Scheduled 2022-02-26 COVID-19 VACCINE (#1) [facility] Test 12:25:56 [code = COVID-19 VACCINE (#1)] Future Scheduled 2022-02-26 COLONOSCOPY SCREENING [facility] Test 12:25:56 [code = COLONOSCOPY SCREENING] Future Scheduled 2022-02-26 SHINGLES VACCINES (1 [facility] Test 12:25:56 of 2) [code = SHINGLES VACCINES (1 of 2)] Future Scheduled 2022-02-26 65+ [facility] 12:25:56 VACCINE (1 - PCV) [code = 65+ PNEUMOCOCCAL VACCINE (1 - PCV)] Future Scheduled 2022-02-26 INFLUENZA VACCINE [facility] Test 12:25:56 [code = INFLUENZA VACCINE] Future Scheduled 2022-02-26 COVID-19 VACCINE (#1) [facility] Test 12:25:56 [code = COVID-19 VACCINE (#1)] Future Scheduled 2022-02-26 COLONOSCOPY SCREENING [facility] Test 12:25:56 [code = COLONOSCOPY SCREENING] Future Scheduled 2022-02-26 COVID-19 VACCINE (#1) [facility] Test 12:25:56 [code = COVID-19 VACCINE (#1)] Future Scheduled 2022-02-26 COLONOSCOPY SCREENING [facility] Test 12:25:56 [code = COLONOSCOPY SCREENING] Future Scheduled 2022-02-26 SHINGLES VACCINES (1 [facility] Test 12:25:56 of 2) [code = SHINGLES VACCINES (1 of 2)] Future Scheduled 2022-02-26 65+ [facility]AL [facility] 12:25:56 VACCINE (1 - PCV) [code = 65+ PNEUMOCOCCAL VACCINE (1 - PCV)] Future Scheduled 2022-02-26 INFLUENZA VACCINE [facility] Test 12:25:56 [code = INFLUENZA VACCINE] Future Scheduled 2022-02-26 SHINGLES VACCINES (1 [facility] Test 12:25:56 of 2) [code = SHINGLES VACCINES (1 of 2)] Future Scheduled 2022-02-26 65+ [facility]OCCAL [facility] 12:25:56 VACCINE (1 - PCV) [code = 65+ PNEUMOCOCCAL VACCINE (1 - PCV)] Future Scheduled 2022-02-26 INFLUENZA VACCINE [facility] 12:25:56 [code = INFLUENZA VACCINE] Future Scheduled 2022-02-26 COVID-19 VACCINE (#1) [facility] Test 12:25:56 [code = COVID-19 VACCINE (#1)] Future Scheduled 2022-02-26 COLONOSCOPY SCREENING [facility] Test 12:25:56 [code = COLONOSCOPY SCREENING] Future Scheduled 2022-02-26 SHINGLES VACCINES (1 [facility] Test 12:25:56 of 2) [code = SHINGLES VACCINES (1 of 2)] Future Scheduled 2022-02-26 65+ [facility]OCOCCAL [facility] 12:25:56 VACCINE (1 - PCV) [code = 65+ PNEUMOCOCCAL VACCINE (1 - PCV)] Encounters Start End Encounter Admission Attending Care Care Encounter Source Date/Time Date/Time Type Type Clinicians Facility Department ID 2021-03-03 2021-03-03 Outpatient [facility] [id number] [facility] 15:59:47 15:59:47 Matthew Results This patient has no known results.
--- NOTE | 2022-03-20 17:38 | EDPHYS ---
Physician Documentation [facility] Name: Alex Garcia Age: 71 yrs Sex: Male : 1950 Arrival Date: 03/20/2022 Time: 17:01 Bed 2 Private MD: Mayank Funes S ED Physician Sal Little HPI: 03/20 17:38 This 71 yrs old Male presents to ER via Ambulatory with complaints of High Blood ms3 Pressure. 17:38 71-year-old male with past medical history of anxiety, COPD, depression, GERD, ms3 hypothyroidism presents for high blood pressure. 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 Patient states his blood pressure at home 3 to 4 hours prior to arrival and was 185/99. 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 Funes and he is currently on 20 mg lisinopril daily. Patient denies pain at this time. Patient denies chest pain, shortness of breath, nausea, vomiting.. Historical: - Allergies: 17:12 Methotrexate; kb3 - Home Meds: 17:12 Thais 180 mg Oral tab 1 tab once daily [Active]; levothyroxine 112 mcg oral tab 1 tab kb3 once daily [Active]; lisinopril 20 mg Oral tab 1 tab once daily [Active]; pantoprazole 40 mg oral TbEC 1 tab once daily [Active]; fluoxetine 40 mg Oral cap 1 cap once daily [Active]; - PMHx: 17:12 Anxiety; COPD; Depression; GERD; Hypothyroidism; left arm injury with injury to arter.; kb3 Rheumatoid Arthritis; Hypertensive disorder; - Immunization history:: Adult Immunizations up to date, Client reports receiving the 2nd dose of the Covid vaccine, Last tetanus immunization: up to date. - Social history:: Smoking status: Patient denies any tobacco usage or history of. ROS: 17:38 Constitutional: Negative for fever, and chills. Neck: Negative for injury, pain, and ms3 swelling. 17:38 Respiratory: Negative for shortness of breath, cough, wheezing, and pleuritic chest pain, Abdomen/GI: Negative for abdominal pain, nausea, vomiting, diarrhea, and constipation, MS/Extremity: Negative for injury and deformity, Skin: Negative for injury, rash, and discoloration. 17:38 Cardiovascular: Positive for HTN. Exam: 17:38 Constitutional: This is a well developed, well nourished patient who is awake, alert, ms3 and in no acute distress. Head/Face: Normocephalic, atraumatic. Neck: Trachea midline, no cervical lymphadenopathy. Supple, full range of motion without nuchal rigidity, or vertebral point tenderness. No Meningismus. Chest/axilla: Normal chest wall appearance and motion. Nontender with no deformity. Cardiovascular: Regular rate and rhythm with a normal S1 and S2. No gallops, murmurs, or rubs. Normal PMI, no JVD. No pulse deficits. Respiratory: Lungs have equal breath sounds bilaterally, clear to auscultation and percussion. No rales, rhonchi or wheezes noted. No increased work of breathing, no retractions or nasal flaring. Abdomen/GI: Soft, non-tender, with normal bowel sounds. No distension or tympany. No guarding or rebound. No evidence of tenderness throughout. Skin: Warm, dry with normal turgor. Normal color with no rashes, no lesions, and no evidence of cellulitis. MS/ Extremity: Pulses equal, no cyanosis. Neurovascular intact. Full, normal range of motion. Vital Signs: 17:08 BP 178 / 86; Pulse 67; Resp 20; Temp 98.5; Pulse Ox 98% ; Weight 92.53 kg; Height 6 ft. kb3 1 in. (185.42 cm); Pain 0/10; 18:15 BP 168 / 80; Pulse 66; Resp 16; Pulse Ox 99% on R/A; hb 18:44 BP 155 / 88; Pulse 67; Resp 18; Temp 97.8; Pulse Ox 100% on R/A; ph 17:08 Body Mass Index 26.91 (92.53 kg, 185.42 cm) kb3 MDM: 17:34 Patient medically screened. ms3 17:38 ED course: Discussion of management of care with other providers: Discussed case with ms3 Dr. Funes and he recommends increasing patient's lisinopril to 20 mg twice daily and adding Norvasc 10 mg p.o. daily Independent interpretations: media monitor normal sinus rhythm heart rate 71, no ectopy Prescriptions: Norvasc 10 mg p.o. daily, lisinopril increased to 20 mg p.o. twice daily Diagnostic test considered but not performed: CBC, BMP, troponin, EKG, chest x-ray considered; however, patient is asymptomatic at this time. . 17:38 Differential diagnosis: hypertensive crisis, Malignant HTN, HTN. Data reviewed: vital ms3 signs, nurses notes, EKG, and as a result, I will discharge patient. Data interpreted: media monitor: rate is 71 beats/min, rhythm is normal sinus rhythm, regular, with no ectopy, Interpretation: normal rate, normal rhythm. Test interpretation: by ED physician or midlevel provider: ECG. Counseling: I had a detailed discussion with the patient and/or guardian regarding: the historical points, exam findings, and any diagnostic results supporting the discharge/admit diagnosis, the need for outpatient follow up, to return to the emergency department if symptoms worsen or persist or if there are any questions or concerns that arise at home. ED course: Patient to follow-up with Dr. Funes on Wednesday or Wednesday. Patient understands and agrees with plan. All questions were answered. Return precautions discussed include worsening symptoms, or any other concerns.. Administered Medications: 18:15 Drug: Norvasc (amlodipine) 10 mg Route: PO; ph 18:24 Follow up: Response: No adverse reaction; Medication administered at discharge. ph 18:15 Drug: Lisinopril 20 mg Route: PO; ph 18:25 Follow up: Response: No adverse reaction; Medication administered at discharge. ph Disposition Summary: 03/20/22 17:37 Discharge Ordered Location: Home ms3 Condition: Stable ms3 Diagnosis - Essential (primary) hypertension ms3 Followup: ms3 - With: Mayank Funes MD - When: 2 - 3 days - Reason: Recheck today's complaints Discharge Instructions: - Discharge Summary Sheet ms3 - Hypertension, Adult ms3 Forms: - Medication Reconciliation Form ms3 - Thank You Letter ms3 - Antibiotic Education ms3 - Prescription Opioid Use ms3 Prescriptions: - Norvasc 10 mg Oral Tablet - take 1 tablet by ORAL route once daily; 30 tablet; Refills: 0, Product ms3 Selection Permitted Signatures: Radha Driscoll RN RN Sal Bob DO DO ms3 Amber Todd RN RN kb3 Corrections: (The following items were deleted from the chart) 17:14 17:12 Home Meds: Breo Ellipta 200-25 mcg/dose inhalation dsdv 1 puff once daily; kb3 kb3 17:14 17:12 Home Meds: bupropion HCl 300 mg Oral Tb24 1 tab once daily; kb3 kb3 17: 17:12 Home Meds: multivitamin Oral tab daily; kb3 kb3 17: 17:12 Home Meds: omeprazole 20 mg Oral cpDR 1 cap once daily; kb3 kb3 17: 17:12 Home Meds: ranitidine HCl 150 mg Oral cap 1 cap nightly; kb3 kb3
--- NOTE | 2022-03-20 17:38 | ER ---
Nurse's Notes [facility] Name: Alex Garcia Age: 71 yrs Sex: Male : 1950 Arrival Date: 03/20/2022 Time: 17:01 Bed 2 Private MD: Mayank Funes S Diagnosis: Essential (primary) hypertension Presentation: 03/20 17:08 Chief complaint: Patient states: high blood pressure "for a while." Also reports kb3 cough/congestion/runny nose x2 weeks. States "a different feeling in left chest" but does not reports it as pain. Coronavirus screen: Vaccine status: Patient reports receiving the 2nd dose of the covid vaccine. Client denies travel out of the [place] in the last 14 days. Ebola Screen: Patient negative for fever greater than or equal to 101.5 degrees Fahrenheit, and additional compatible Ebola Virus Disease symptoms Patient denies exposure to infectious person. Patient denies travel to an Ebola-affected area in the 21 days before illness onset. Initial Sepsis Screen: Does the patient meet any 2 criteria? No. Patient's initial sepsis screen is negative. Does the patient have a suspected source of infection? No. Patient's initial sepsis screen is negative. Risk Assessment: Do you want to hurt yourself or someone else? Patient reports no desire to harm self or others. Onset of symptoms is unknown. 17:08 Method Of Arrival: Ambulatory kb3 17:08 Acuity: PANDA 3 kb3 Triage Assessment: 17:12 General: Appears in no apparent distress. Behavior is calm, cooperative. Pain: kb3 Complains of pain in anterior aspect of left upper chest Pain does not radiate. Pain currently is 1 out of 10 on a pain scale. Quality of pain is described as dull. Historical: - Allergies: 17:12 Methotrexate; kb3 - Home Meds: 17:12 Thais 180 mg Oral tab 1 tab once daily [Active]; levothyroxine 112 mcg oral tab 1 tab kb3 once daily [Active]; lisinopril 20 mg Oral tab 1 tab once daily [Active]; pantoprazole 40 mg oral TbEC 1 tab once daily [Active]; fluoxetine 40 mg Oral cap 1 cap once daily [Active]; - PMHx: 17:12 Anxiety; COPD; Depression; GERD; Hypothyroidism; left arm injury with injury to arter.; kb3 Rheumatoid Arthritis; Hypertensive disorder; - Immunization history:: Adult Immunizations up to date, Client reports receiving the 2nd dose of the Covid vaccine, Last tetanus immunization: up to date. - Social history:: Smoking status: Patient denies any tobacco usage or history of. Screenin:25 [facility] ED Fall Risk Assessment (Adult) History of falling in the last 3 months, ph including since admission No falls in past 3 months (0 pts) Confusion or Disorientation No (0 pts) Intoxicated or Sedated No (0 pts) Impaired Gait No (0 pts) Mobility Assist Device Used No (0 pt) Altered Elimination No (0 pt) Score/Fall Risk Level 0 - 2 = Low Risk Oriented to surroundings. Abuse screen: Denies threats or abuse. Denies injuries from another. Nutritional screening: No deficits noted. Tuberculosis screening: No symptoms or risk factors identified. 18:42 [facility] ED Fall Risk Assessment (Adult) Score/Fall Risk Level 0 - 2 = Low Risk hb Oriented to surroundings, Maintained a safe environment. Abuse screen: Denies threats or abuse. Denies injuries from another. Nutritional screening: No deficits noted. Tuberculosis screening: No symptoms or risk factors identified. Assessment: 17:40 General: Appears in no apparent distress. Behavior is calm, cooperative. Neuro: Level hb of Consciousness is awake, alert, obeys commands, Oriented to person, place, time, situation. Cardiovascular: Patient's skin is warm and dry. Respiratory: Respiratory effort is even, unlabored, Respiratory pattern is regular, symmetrical. GI: No signs and/or symptoms were reported involving the gastrointestinal system. : No signs and/or symptoms were reported regarding the genitourinary system. EENT: No signs and/or symptoms were reported regarding the EENT system. Derm: Skin is pink, warm \\T\\ dry. Musculoskeletal: No signs and/or symptoms reported regarding the musculoskeletal system. Vital Signs: 17:08 BP 178 / 86; Pulse 67; Resp 20; Temp 98.5; Pulse Ox 98% ; Weight 92.53 kg; Height 6 ft. kb3 1 in. (185.42 cm); Pain 0/10; 18:15 BP 168 / 80; Pulse 66; Resp 16; Pulse Ox 99% on R/A; hb 18:44 BP 155 / 88; Pulse 67; Resp 18; Temp 97.8; Pulse Ox 100% on R/A; ph 17:08 Body Mass Index 26.91 (92.53 kg, 185.42 cm) kb3 ED Course: 17:01 Patient arrived in ED. as 17:01 Mayank Funes MD is Private Physician. as 17:12 Triage completed. kb3 17:12 Arm band placed on right wrist. kb3 17:21 Sal Little DO is Attending Physician. ms3 17:32 Radha Driscoll RN is Primary Nurse. ph 17:37 Mayank Funes MD is Referral Physician. ms3 18:42 Patient has correct armband on for positive identification. ph 18:42 No provider procedures requiring assistance completed. Patient did not have IV access ph during this emergency room visit. Administered Medications: 18:15 Drug: Norvasc (amlodipine) 10 mg Route: PO; ph 18:24 Follow up: Response: No adverse reaction; Medication administered at discharge. ph 18:15 Drug: Lisinopril 20 mg Route: PO; ph 18:25 Follow up: Response: No adverse reaction; Medication administered at discharge. ph Medication: 18:42 VIS not applicable for this client. ph Outcome: 17:37 Discharge ordered by MD. ms3 18:39 Discharged to home ambulatory. hb 18:39 Condition: stable 18:39 Discharge instructions given to patient, Instructed on discharge instructions, follow up and referral plans. medication usage, Demonstrated understanding of instructions, follow-up care, medications, Prescriptions given X 2. 18:43 Patient left the ED. ph Signatures: Mery Sheppard as Radha Driscoll RN RN Charisma Holguin RN RN Sal Little DO DO ms3 Amber Todd, JOSE RN kb3 Corrections: (The following items were deleted from the chart) 17:14 17:12 Home Meds: Breo Ellipta 200-25 mcg/dose inhalation dsdv 1 puff once daily; kb3 kb3 17:14 17:12 Home Meds: bupropion HCl 300 mg Oral Tb24 1 tab once daily; kb3 kb3 17:14 17:12 Home Meds: multivitamin Oral tab daily; kb3 kb3 17:14 17:12 Home Meds: omeprazole 20 mg Oral cpDR 1 cap once daily; kb3 kb3 17:14 17:12 Home Meds: ranitidine HCl 150 mg Oral cap 1 cap nightly; kb3 kb3
[2022-03-20] MEDS ORDERED: lisinopriL 20 MG TAB ONE (17:52)
[2022-03-20] MEDS ORDERED: AMLODIPINE 10 MG TAB ONE (17:52)
[2022-03-20 19:26] VITALS: TEMP 98.5
[2022-03-20 19:28] VITALS: BP 168/80; O2SAT 99
== END 2022-03-20 18:43 | disposition home or self-care (01) ==
LOC: ER 16:58
DX: I10 Essential (primary) hypertension (principal)
CPT/HCPCS: 99283